=== PATIENT | female | born 1925 | race African-American/Black ===

== ENCOUNTER 2016-04-17 11:56 | Outpatient (CLI) | payer MEDICARE ==
--- NOTE | 2016-04-17 14:46 | RAD ---
LEFT KNEE FOUR VIEW: History: Chronic knee pain without trauma. Comparison: None. FINDINGS: No acute fracture or malalignment. Moderate degenerative lateral compartment osteophyte change invo lving large osteophytes. Moderate joint effusion. Mild vascular calcifications. IMPRESSION: 1. Tricompartmental osteoarthritic disease, worsening in the lateral compartment with subchondral s clerosis and joint space loss. 2. Joint effusion likely relative due to underlying degenerative disease. POS: [facility]
== END 2016-04-17 11:57 | disposition home or self-care (01) ==
LOC: MADRAD 11:56
PROVIDERS: ATTEND General Practice
DX: M25.562 Pain in left knee (principal)

== ENCOUNTER 2016-09-04 00:52 | Emergency (ER) | payer MEDICARE ==
[2016-09-04] MEDS ORDERED: Naproxen 500 MG TAB ONE (01:50)
[2016-09-04] MEDS ORDERED: Diazepam 5 MG TAB ONE (01:50)
[2016-09-04] MEDS ORDERED: HYDROcodone/Acetaminophen 5/325 mg Tablet ONE (01:50)
== END 2016-09-04 02:00 | disposition home or self-care (01) ==
LOC: MADERS 00:52
DX: M43.6 Torticollis (principal); E78.5 Hyperlipidemia, unspecified; I10 Essential (primary) hypertension; Z79.899 Other long term (current) drug therapy
CPT/HCPCS: 99283